=== PATIENT | male | born 1955 | race Caucasian/White ===

== ENCOUNTER 2018-07-18 06:00 | Day surgery (SDC) | payer OTHER ==
[~2018-07-18] VITALS: Ht 175.3 cm; Wt 79.5 kg
[2018-07-18 06:53] VITALS: Ht 175.3 cm; Wt 79.5 kg
[2018-07-18 07:20] VITALS: BP 118/64; PULSE 71; RESP 13
[2018-07-18] MEDS ORDERED: morphine (1 MG/ML) 10ML SYRINGE IV PRN (07:30)
[2018-07-18] MEDS ORDERED: ONDANSETRON 4 MG INJ IV PRN (07:30)
--- NOTE | 2018-07-18 07:30 | PREAC ---
Date/Time of Note Date/Time of Note DATE: 07/18/18 TIME: 07:28 Anesthesia Eval and Record Evaluation Time Pre-Procedure Interview DATE: 07/18/18 TIME: 07:28 Age 62 Sex male NPO: 8 hrs Preoperative diagnosis Anemia, + Fecal Occult Blood Planned procedure Colonoscopy Past Medical History Past Medical History: Includes Hepatic: Hepatitis, Other (Unsure which type, reports was treated for 1 yr) Heme: Anemia Surgery & Anesthesia Issues Other issues (Rash near IV site) Meds Anticoagulation: No Beta Shelbi within 24 hr: No Reason Beta Shelbi not given: Pt. not on B-Shelbi Meds reviewed: Yes Allergies Coded Allergies: Penicillins (Verified Allergy, Intermediate, rash, 07/18/18) Allergies Reviewed: Yes Labs/Studies Labs Reviewed: Reviewed by anesthesiologist test: N/A Pre-procedure Exam Airway: Adequate mouth opening Mallampati: Mallampati II Teeth: Normal Lung: Normal Heart: Normal ASA Physical Status ASA physical status: 2 Emergency: None Pre-operative Attestations Prior to commencing anesthesia and surgery, the patient was re-evaluated, there was verification of: *The patient's identity *The results of appropriate recent lab work and preoperative vital signs *The above evaluation not changing prior to induction *Anesthetic plan, risk benefits, alternative and complications discussed with patient/family; questions answered; patient/family understands, accepts and wishes to proceed. SHAWNEE HAWKINS MD July 18, 2018 07:30
[2018-07-18] MEDS ORDERED: PROPOFOL 40 ML ONE (07:32)
[2018-07-18] MEDS ORDERED: LIDOCAINE 2% (SDV) 5 ML INJ ONE (07:32)
[2018-07-18] MEDS ORDERED: VITAMIN B COMPLEX (07:33)
[2018-07-18] MEDS ORDERED: PROPOFOL 20 ML ONE (08:26)
[2018-07-18 09:04] VITALS: BP 113/59; PULSE 68; RESP 16
--- NOTE | 2018-07-18 10:15 | PAC ---
Date/Time of Note Date/Time of Note DATE: 07/18/18 TIME: 10:14 Post-Anesthesia Notes Post-Anesthesia Note Last documented vital signs Vital Signs Date Temp Pulse Resp B/P (MAP) Pulse Ox O2 O2 Flow FiO2 Time Delivery Rate 07/18/18 68 16 113/59 97 Room Air 09:04 (77) 07/18/18 98.0 07:20 Activity: WNL Respiratory function: WNL Cardiovascular function: WNL Mental status: Baseline Pain reasonably controlled: Yes Hydration appropriate: Yes Nausea/Vomiting absent: Yes SHAWNEE HAWKINS MD July 18, 2018 10:15
== END 2018-07-18 10:57 | disposition home or self-care (01) ==
LOC: GIL 06:00
PROVIDERS: ATTEND Internal Medicine Gastroenterology
DX: Z12.11 Encounter for screening for malignant neoplasm of colon (principal); D12.5 Benign neoplasm of sigmoid colon; K64.8 Other hemorrhoids
CPT/HCPCS: 88305